=== PATIENT | male | born 1940 | race Caucasian/White ===

== ENCOUNTER 2019-02-13 07:50 | Emergency (ER) | payer MEDICARE ==
[~2019-02-13] VITALS: Ht 172.7 cm; Wt 97.0 kg
[2019-02-13 07:56] VITALS: BP 138/50
[2019-02-13] MEDS ORDERED: HYDR-4383 PO (09:12)
[2019-02-13] MEDS ORDERED: HYDROcodone/acetaminophen 5mg/325mg tablet PO ONE (09:15)
--- NOTE | 2019-02-13 09:42 | NUR ---
BREAKING PRIMARY RN, PT IS IN BED SUPINE, GAVE NORCO FOR PAIN, WITH APPLE SAUCE, TOLERATED WELL, HE SIGNED DC PAPERWORK, CALLED [facility] SPOKE TO CASSY, , THEY WILL SEND MANUEL GRIMALDO FOR HIM
--- NOTE | 2019-02-13 10:17 | NUR ---
TRANSPORT HERE TO GET PATIENT FOR DC. PATIENT REFUSES TO BE DISCHARGED AND STATES THAT HE IS IN TOO MUCH PAIN. STATES "THERE HAS TO BE SOMETHING WRONG WITH MY HIP". PATIENT REASSURED THAT XRAY WAS NEGATIVE FOR FRACTURE. CHARGE NURSE NOTIFIED.
== END 2019-02-13 10:34 | disposition home or self-care (01) ==
LOC: ER 07:51
DX: M54.5 Low back pain (principal); M25.551 Pain in right hip; E78.00 Pure hypercholesterolemia, unspecified; I12.9 Hypertensive chronic kidney disease with stage 1 through stage 4 chronic kidney disease, or unspecified chronic kidney disease; E11.22 Type 2 diabetes mellitus with diabetic chronic kidney disease; N18.9 Chronic kidney disease, unspecified; M10.9 Gout, unspecified; N40.0 Benign prostatic hyperplasia without lower urinary tract symptoms; Z98.890 Other specified postprocedural states; Z88.1 Allergy status to other antibiotic agents; Z79.899 Other long term (current) drug therapy
CPT/HCPCS: 73502; 99284

== ENCOUNTER 2019-02-27 09:26 | Emergency (ER) | payer MEDICARE ==
[~2019-02-27] VITALS: Ht 172.7 cm; Wt 96.0 kg
[~2019-02-27 09:26] MED LIST: HYDR-4383 PO
--- NOTE | 2019-02-27 09:41 | NUR ---
BROUGHT IN BY EMS R/T BACK PAIN THAT IS NOT GETTING ANY BETTER FROM A INJURY THAT HAPPED ABOUT 3 WEEKS AGO
[2019-02-27 10:38] LABS: BASOPHILS # (AUTO) 0.1 X10'3 (0-0.2); BASOPHILS % (AUTO) 0.5 % (0-1); EOSINOPHILS # (AUTO) 0.4 X10'3 (0-0.9); EOSINOPHILS % (AUTO) 2.8 % (0-6); HEMATOCRIT 29.5 % (42.0-52.0); HEMOGLOBIN 9.5 g/dl (14.0-17.9); LYMPHOCYTES # (AUTO) 1.3 X10'3 (1.1-4.8); LYMPHOCYTES % (AUTO) 9.9 % (21-51); MEAN CORPUSCULAR HEMOGLOBIN 29.3 PG (27.0-31.0); MEAN CORPUSCULAR HGB CONC 32.1 g/dL (33.0-36.5); MEAN CORPUSCULAR VOLUME 91.1 FL (78-98); MEAN PLATELET VOLUME 6.5 FL (7.4-10.4); MONOCYTES # (AUTO) 0.8 X10'3 (0-0.9); MONOCYTES % (AUTO) 6.2 % (2-12); NEUTROPHILS # (AUTO) 10.3 X10'3 (1.8-7.7); NEUTROPHILS % (AUTO) 80.6 % (42-75); PLATELET COUNT 355 X10'3 (140-440); RED BLOOD COUNT 3.24 X10'6 (4.70-6.10); RED CELL DISTRIBUTION WIDTH 16.8 % (11.5-14.5); WHITE BLOOD COUNT 12.8 X10'3 (4.5-11.0)
[2019-02-27] MEDS ORDERED: HYDROcodone/acetaminophen 5mg/325mg tablet PO ONE ×2 (11:00→14:35)
[2019-02-27 11:05] LABS: ALANINE AMINOTRANSFERASE 16 U/L (12-78); ALBUMIN 2.7 G/DL (3.4-5.0); ALBUMIN/GLOBULIN RATIO 0.7 (1.1-1.5); ALKALINE PHOSPHATASE 97 IU/L (46-116); ANION GAP 8 (8-16); ASPARTATE AMINO TRANSFERASE 7 U/L (10-37); BILIRUBIN,TOTAL 0.4 MG/DL (0.1-1.0); BLOOD UREA NITROGEN 45 MG/DL (7-18); BUN/CREATININE RATIO 9.5 (5.4-32.0); CALCIUM 8.4 MG/DL (8.5-10.1); CHLORIDE 102 MMOL/L (99-107); CREATININE 4.76 MG/DL (0.60-1.10); GLUCOSE 56 MG/DL (70-104); POTASSIUM 4.6 MMOL/L (3.5-5.1); SODIUM 140 MMOL/L (135-145); TOTAL CARBON DIOXIDE 29.6 MMOL/L (24-32); TOTAL PROTEIN 6.5 G/DL (6.4-8.2); eGFR 12 ML/MIN
--- NOTE | 2019-02-27 12:18 | NUR ---
Spoke to Christin with [facility] [phone] and she is faxing his labs here
--- NOTE | 2019-02-27 12:20 | NUR ---
OUT TO CT
--- NOTE | 2019-02-27 12:44 | NUR ---
labs from [facility] and RAMON Macario looked over his dialysis labs
--- NOTE | 2019-02-27 13:13 | NUR ---
PLACED ON BED OLIVEROS SAYING THAT HE FEELS LIKE HE NEED TO GO TO THE BATHROOM
[2019-02-27] MEDS ORDERED: CYCL-1 PO (13:45)
--- NOTE | 2019-02-27 14:14 | NUR ---
dc orders ready called [facility] for ride they said they will be on their way
--- NOTE | 2019-02-27 14:31 | NUR ---
PT STATES HE IS NOT ALLERGIC TO TYLENOL.
[2019-02-27 14:43] VITALS: BP 150/63
--- NOTE | 2019-02-27 15:11 | NUR ---
AWS DEVELOPER FROM [facility] ARRIVES TO THE ROOM WITH A W/C. TWO MAN ASSIST TO AID PT FROM [facility] TO W/C. DC PAPERWORK WAS GIVEN TO PT'S SISTER BEFORE SHE LEFT.
== END 2019-02-27 15:14 | disposition home or self-care (01) ==
LOC: ER 09:27
DX: M25.551 Pain in right hip (principal); M54.5 Low back pain; R53.1 Weakness; H11.31 Conjunctival hemorrhage, right eye; M10.9 Gout, unspecified; E11.9 Type 2 diabetes mellitus without complications; E78.00 Pure hypercholesterolemia, unspecified; I12.9 Hypertensive chronic kidney disease with stage 1 through stage 4 chronic kidney disease, or unspecified chronic kidney disease; E11.22 Type 2 diabetes mellitus with diabetic chronic kidney disease; N18.9 Chronic kidney disease, unspecified; Z88.1 Allergy status to other antibiotic agents; Z88.8 Allergy status to other drugs, medicaments and biological substances; Z88.2 Allergy status to sulfonamides; Z60.2 Problems related to living alone; Z98.890 Other specified postprocedural states; Z96.651 Presence of right artificial knee joint; W22.8XXA Striking against or struck by other objects, initial encounter; Y93.89 Activity, other specified; Y92.89 Other specified places as the place of occurrence of the external cause; Y99.8 Other external cause status
CPT/HCPCS: 36415; 72100; 74176; 80053; 85025; 85610; 99284

== ENCOUNTER 2019-07-15 12:45 | Emergency (ER) | payer MEDICARE ==
[~2019-07-15] VITALS: Ht 172.7 cm; Wt 94.0 kg
[~2019-07-15 12:45] MED LIST changes: +ACET-812 PO; +ALLO300T2 PO; +AMLO10TA PO; +ASCO-139 PO; +ASPI-10 PO; +ATOR40TA71 PO; +CALC668T PO; +CHOL200077 PO; +DOCU-267 PO; +FLO0.4C PO; +FLUT16SP2 BOTHNARES; -HYDR-4383 PO; +INSU100I25 SQ; +LOPE2CAP PO; +MELA3TAB70 PO; +NOVLG SQ
[2019-07-15] MEDS ORDERED: ipratropium/albuterol 3ml nebule NEB ONE (12:55)
[2019-07-15 13:30] LABS: BASOPHILS % (AUTO) 0.5 % (0-1); EOSINOPHILS # (AUTO) 0.1 X10'3 (0-0.9); EOSINOPHILS % (AUTO) 1.2 % (0-6); HEMOGLOBIN 10.6 g/dl (14.0-17.9); LYMPHOCYTES # (AUTO) 0.6 X10'3 (1.1-4.8); LYMPHOCYTES % (AUTO) 5.6 % (21-51); MEAN CORPUSCULAR HEMOGLOBIN 30.4 PG (27.0-31.0); MEAN CORPUSCULAR HGB CONC 31.3 g/dL (33.0-36.5); MEAN CORPUSCULAR VOLUME 97.2 FL (78-98); MEAN PLATELET VOLUME 6.6 FL (7.4-10.4); MONOCYTES # (AUTO) 0.7 X10'3 (0-0.9); MONOCYTES % (AUTO) 7.1 % (2-12); NEUTROPHILS # (AUTO) 8.7 X10'3 (1.8-7.7); NEUTROPHILS % (AUTO) 85.6 % (42-75); PLATELET COUNT 252 X10'3 (140-440); RED BLOOD COUNT 3.49 X10'6 (4.70-6.10); WHITE BLOOD COUNT 10.2 X10'3 (4.5-11.0)
[2019-07-15] MEDS ORDERED: ipratropium/albuterol 3ml nebule ONE (13:30)
[2019-07-15 13:40] LABS: PARTIAL THROMBOPLASTIN TIME 33 SECONDS (22-32)
[2019-07-15 13:42] LABS: ALANINE AMINOTRANSFERASE 22 U/L (12-78); ALBUMIN 2.9 G/DL (3.4-5.0); ALBUMIN/GLOBULIN RATIO 0.8 (1.1-1.5); ALKALINE PHOSPHATASE 130 IU/L (46-116); ANION GAP 10 (8-16); ASPARTATE AMINO TRANSFERASE 14 U/L (10-37); BILIRUBIN,TOTAL 0.4 MG/DL (0.1-1.0); BLOOD UREA NITROGEN 49 MG/DL (7-18); BUN/CREATININE RATIO 10.4 (5.4-32.0); CALCIUM 8.6 MG/DL (8.5-10.1); CHLORIDE 94 MMOL/L (99-107); GLUCOSE 216 MG/DL (70-104); POTASSIUM 5.1 MMOL/L (3.5-5.1); SODIUM 134 MMOL/L (135-145); TOTAL CARBON DIOXIDE 29.8 MMOL/L (24-32); TOTAL PROTEIN 6.5 G/DL (6.4-8.2); eGFR 12 ML/MIN
[2019-07-15 13:55] LABS: ABG BASE EXCESS -1.4 mmol/L (-2.0-3.0); ABG HCO3 26.4 mmol/L (22.0-26.0); ABG OXYGEN SATURATION 89.8 % (95-98); ABG PCO2 (T) 59.7 mmHg (35.0-45.0); ABG PH (T) 7.263 (7.350-7.450); ABG PO2 (T) 62.9 mmHg (83-108); FCOHb 2.5 % (0.5-1.5); FLOW 4 L/min; FMetHb 0.3 % (0.3-1.12); FO2Hb 87.3 % (94-100); TOTAL HEMOGLOBIN 10.9 G/dl (14.0-17.9)
[2019-07-15] MEDS ORDERED: furosemide 10 MG/1 ML 10ml inj IV ONE (15:00)
[2019-07-15] MEDS ORDERED: acetaminophen 325mg tablet PO ONE (15:20)
--- NOTE | 2019-07-15 15:30 | NUR ---
ATTEMPTED TO PLACE PHILLIPS. UNABLE TO ADVANCE. CALL PLACED TO DR. CONTRERAS, WAITING FOR RESPONCE. PLACED CONDOM CATH. PT. DISCHARED TO FOLLOW THE PLAN SET BY MATTHEW.
--- NOTE | 2019-07-15 16:52 | NUR ---
UNABLE TO REACH DR. TERRY FOR VARIFICATION OF THE PHILLIPS. GO HOME WITH IT OR PULL IT BEFORE PT. LEAVES. NEW PLAN CALL DR. PETTY AT [phone]
[2019-07-15 19:24] VITALS: BP 130/58
[2019-07-16] MEDS ORDERED: ALLO300T35 PO (20:59)
== END 2019-07-15 19:27 | disposition home or self-care (01) ==
LOC: ER 12:46
DX: J44.1 Chronic obstructive pulmonary disease with (acute) exacerbation (principal); N18.6 End stage renal disease; J81.1 Chronic pulmonary edema; R14.0 Abdominal distension (gaseous); E87.4 Mixed disorder of acid-base balance; I24.9 Acute ischemic heart disease, unspecified; E78.00 Pure hypercholesterolemia, unspecified; I12.0 Hypertensive chronic kidney disease with stage 5 chronic kidney disease or end stage renal disease; E11.22 Type 2 diabetes mellitus with diabetic chronic kidney disease; M10.9 Gout, unspecified; Z99.2 Dependence on renal dialysis; Z98.890 Other specified postprocedural states; Z88.2 Allergy status to sulfonamides; Z88.1 Allergy status to other antibiotic agents; Z88.8 Allergy status to other drugs, medicaments and biological substances; Z79.82 Long term (current) use of aspirin; Z79.4 Long term (current) use of insulin; Z79.899 Other long term (current) drug therapy
CPT/HCPCS: 36415; 36600; 71045; 80053; 82803; 83880; 84484; 85018; 85025; 85610; 85730; 93005; 94640; 96374; 99285; J1940; 94760

== ENCOUNTER 2019-07-27 06:58 | Day surgery (SDC) | payer MEDICARE ==
[~2019-07-27] VITALS: Ht 172.7 cm; Wt 96.2 kg
[~2019-07-27 06:58] MED LIST changes: -ALLO300T2 PO; +ALLO300T35 PO
== END 2019-07-27 09:30 ==
LOC: SSTAY O 06:58
PROVIDERS: ATTEND Radiology Vascular & Interventional Radiology
DX: J90 Pleural effusion, not elsewhere classified (principal); E78.00 Pure hypercholesterolemia, unspecified; N40.0 Benign prostatic hyperplasia without lower urinary tract symptoms; E11.22 Type 2 diabetes mellitus with diabetic chronic kidney disease; I12.9 Hypertensive chronic kidney disease with stage 1 through stage 4 chronic kidney disease, or unspecified chronic kidney disease; N18.9 Chronic kidney disease, unspecified; M10.9 Gout, unspecified; Z99.2 Dependence on renal dialysis; Z88.2 Allergy status to sulfonamides; Z88.1 Allergy status to other antibiotic agents; Z88.8 Allergy status to other drugs, medicaments and biological substances; Z90.49 Acquired absence of other specified parts of digestive tract; Z95.1 Presence of aortocoronary bypass graft; Z96.651 Presence of right artificial knee joint; Z87.891 Personal history of nicotine dependence; Z79.899 Other long term (current) drug therapy; Z79.4 Long term (current) use of insulin; Z79.82 Long term (current) use of aspirin
CPT/HCPCS: 76604; 82948

== ENCOUNTER 2019-08-19 13:21 | Emergency (ER) | payer MEDICARE ==
[~2019-08-19] VITALS: Ht 172.7 cm; Wt 96.4 kg
[2019-08-19 14:01] LABS: BASOPHILS # (AUTO) 0.1 X10'3 (0-0.2); BASOPHILS % (AUTO) 0.4 % (0-1); EOSINOPHILS # (AUTO) 0.2 X10'3 (0-0.9); EOSINOPHILS % (AUTO) 1.6 % (0-6); HEMATOCRIT 36.9 % (42.0-52.0); HEMOGLOBIN 11.4 g/dl (14.0-17.9); LYMPHOCYTES # (AUTO) 0.8 X10'3 (1.1-4.8); LYMPHOCYTES % (AUTO) 5.6 % (21-51); MEAN CORPUSCULAR HEMOGLOBIN 31.4 PG (27.0-31.0); MEAN CORPUSCULAR HGB CONC 30.9 g/dL (33.0-36.5); MEAN CORPUSCULAR VOLUME 101.4 FL (78-98); MEAN PLATELET VOLUME 6.8 FL (7.4-10.4); MONOCYTES # (AUTO) 1.1 X10'3 (0-0.9); MONOCYTES % (AUTO) 7.4 % (2-12); NEUTROPHILS # (AUTO) 12.4 X10'3 (1.8-7.7); PLATELET COUNT 226 X10'3 (140-440); RED BLOOD COUNT 3.64 X10'6 (4.70-6.10); RED CELL DISTRIBUTION WIDTH 17.6 % (11.5-14.5); WHITE BLOOD COUNT 14.6 X10'3 (4.5-11.0)
[2019-08-19 14:08] LABS: PARTIAL THROMBOPLASTIN TIME 31 SECONDS (22-32)
[2019-08-19 14:11] LABS: ALANINE AMINOTRANSFERASE 33 U/L (12-78); ALBUMIN 2.7 G/DL (3.4-5.0); ALBUMIN/GLOBULIN RATIO 0.8 (1.1-1.5); ALKALINE PHOSPHATASE 125 IU/L (46-116); ANION GAP 9 (8-16); ASPARTATE AMINO TRANSFERASE 18 U/L (10-37); BILIRUBIN,TOTAL 0.3 MG/DL (0.1-1.0); BLOOD UREA NITROGEN 53 MG/DL (7-18); BUN/CREATININE RATIO 10.1 (5.4-32.0); CALCIUM 8.1 MG/DL (8.5-10.1); CHLORIDE 95 MMOL/L (99-107); CREATININE 5.27 MG/DL (0.60-1.10); GLUCOSE 187 MG/DL (70-104); POTASSIUM 5.2 MMOL/L (3.5-5.1); SODIUM 131 MMOL/L (135-145); TOTAL CARBON DIOXIDE 26.6 MMOL/L (24-32); TOTAL PROTEIN 6.3 G/DL (6.4-8.2); eGFR 11 ML/MIN
[2019-08-19 14:28] VITALS: BP 121/41
[2019-08-19] MEDS ORDERED: furosemide 10 MG/1 ML 10ml inj IV ONE (14:35)
[2019-08-21] MEDS ORDERED: MELO7.5T12 PO (19:17)
[2019-08-21] MEDS ORDERED: VITA-268 PO (19:17)
[2019-08-21] MEDS ORDERED: GUAI100S4 PO (19:17)
[2019-08-21] MEDS ORDERED: [UNRECOGNIZED DRUG - CODE] PO ×2 (19:17)
[2019-08-21] MEDS ORDERED: HYDR-3964 PO (19:17)
[2019-08-21] MEDS ORDERED: ondansetron/PF 4mg/2ml inj IV PRN (22:30)
[2019-08-21] MEDS ORDERED: acetaminophen 325mg tablet PO PRN ×2 (22:30)
[2019-08-21] MEDS ORDERED: HYDROcodone/acetaminophen 5mg/325mg tablet PO PRN (22:40)
[2019-08-21] MEDS ORDERED: non-formulary drug (Fluticasone Propionate (Flonase) 2 SPRAYS) BOTHNARES PRN (22:40)
[2019-08-21] MEDS ORDERED: guaiFENesin 200mg/10ml UD cup PO PRN (22:40)
[2019-08-21] MEDS ORDERED: docusate sod 100mg capsule PO PRN (22:40)
[2019-08-21] MEDS ORDERED: non-formulary drug (Melatonin 1 TAB) PO PRN (22:40)
[2019-08-22] MEDS ORDERED: tamsulosin 0.4mg capsule PO SCH (08:00)
[2019-08-22] MEDS ORDERED: CALCIUM ACETATE PO SCH (08:00)
[2019-08-22] MEDS ORDERED: ALLOPURINOL PO SCH (08:00)
[2019-08-22] MEDS ORDERED: vitamin B comp w/Vit. C tab 1 TAB TABLET PO SCH (08:00)
[2019-08-22] MEDS ORDERED: non-formulary drug (Ascorbic Acid (Vitamin C) 1 TAB) PO SCH (08:00)
[2019-08-22] MEDS ORDERED: non-formulary drug (Atorvastatin Calcium 1 TABLET) PO SCH (21:00)
== END 2019-08-19 15:22 | disposition home or self-care (01) ==
LOC: ER 13:21
DX: I12.0 Hypertensive chronic kidney disease with stage 5 chronic kidney disease or end stage renal disease (principal); E11.22 Type 2 diabetes mellitus with diabetic chronic kidney disease; N18.6 End stage renal disease; R07.89 Other chest pain; E78.00 Pure hypercholesterolemia, unspecified; N40.0 Benign prostatic hyperplasia without lower urinary tract symptoms; M10.9 Gout, unspecified; Z96.651 Presence of right artificial knee joint; Z88.2 Allergy status to sulfonamides; Z88.1 Allergy status to other antibiotic agents; Z79.82 Long term (current) use of aspirin; Z99.2 Dependence on renal dialysis; Z79.4 Long term (current) use of insulin
CPT/HCPCS: 36415; 71045; 80053; 83735; 83880; 84484; 85025; 85610; 85730; 93005; 99285; J1940